=== PATIENT | male | born 1995 | race American Indian/Alaskan Native ===

== ENCOUNTER 2018-10-01 15:11 | Emergency (ER) | payer SELFPAY ==
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
[2018-10-01] MEDS ORDERED: AUGMENTIN 875 MG PO ONE (17:09)
[2018-10-01] MEDS ORDERED: MOTRIN PO ONE (17:09)
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
[2018-10-01 19:48] VITALS: BP 140/90
== END 2018-10-01 18:42 | disposition home or self-care (01) ==
LOC: ED 15:11
DX: K04.7 Periapical abscess without sinus (principal); F17.200 Nicotine dependence, unspecified, uncomplicated
CPT/HCPCS: 70486; 99284